=== PATIENT | male | born 1965 | race Caucasian/White ===

== ENCOUNTER 2020-09-12 11:47 | Emergency (ER) | payer OTHER, SELFPAY ==
--- NOTE | ~2020-09-12 | CT_ITS ---
EXAMINATION: CT ABDOMEN AND PELVIS WITHOUT CONTRAST CLINICAL INFORMATION: Left-sided flank pain. History renal calculi. COMPARISON: CT abdomen and pelvis noncontrast 10/24/2019 TECHNIQUE: Multidetector volumetric imaging was performed from the superior aspect of the liver through the pubic symphysis. Sagittal and coronal reformatted images were obtained on the technologist's workstation. This CT examination was performed using dose optimization techniques as appropriate, variously including the following: *Automated exposure control *Adjustment of mA and/or kV according to patient size (this includes techniques or standardized protocols for targeted exams where dose is matched to indication/reason for exam; i.e. extremities or head) *Use of iterative reconstruction technique DLP: 833 mGy-cm FINDINGS: LUNG BASES: The visualized lung bases are unremarkable. LIVER, GALLBLADDER, AND BILIARY TREE: The liver is normal in size, shape, and attenuation. No focal hepatic lesion or biliary ductal dilatation is present. The gallbladder is unremarkable with no evidence of radiopaque gallstones, gallbladder wall thickening, or obvious pericholecystic inflammatory changes. PANCREAS: Unremarkable. SPLEEN: Unremarkable. ADRENAL GLANDS: Unremarkable. KIDNEYS AND URETERS: There is mild to moderate left hydronephrosis secondary to a ureteropelvic junction calculus 0.6 x 0.4 cm, 617 HU attenuation, and 13 cm from the left flank. There is a nonobstructing calculus interpolar left kidney measuring 0.7 x 0.5 cm, 738 HU attenuation. There is no perinephric stranding. No other left urinary tract calculi. No right hydronephrosis or perinephric stranding. There is a punctate nonobstructing calculus lower pole right kidney under 3 mm, series 4 image 414. BLADDER: Unremarkable. GASTROINTESTINAL TRACT: No bowel obstruction or inflammatory changes in the bowel or mesentery. Normal appendix. No ascites or fluid collection. There is mild lipodystrophy central mesentery with mild circumscribed increased attenuation similar to prior CT 10/14/2019. ABDOMINAL WALL: Stable small fat-containing umbilical hernia under 3 cm. Stable borderline fat-containing inguinal hernias. LYMPH NODES: No lymphadenopathy. VASCULAR: Unremarkable. PELVIC VISCERA: Unremarkable. OSSEOUS STRUCTURES: No acute bony abnormality. Degenerative disc changes again noted lumbosacral junction. CT/CT abdomen pelvis wo con IMPRESSION: 1. Mild to moderate left hydronephrosis secondary to a UPJ calculus 6 x 4 mm. No perinephric stranding. 2. Nonobstructing left renal calculus 7 x 5 mm. Punctate nonobstructing right lower pole calculus.
[2020-09-12 11:54] VITALS: BP 135/80; PULSE 83; RESP 16; TEMP 36.6; O2SAT 97; BMI 25.7
[2020-09-12 12:00] VITALS: BP 136/81; PULSE 69; RESP 20; TEMP 36.8; O2SAT 95
--- NOTE | 2020-09-12 12:49 | ED.ABDPAIN ---
HPI - Abdominal Pain General Chief Complaint: Abdominal Pain Stated Complaint: kidney stone Time Seen by Provider: 09/12/20 12:34 Source: patient Mode of arrival: ambulatory Limitations: no limitations History of Present Illness HPI narrative: 54-year-old male with a history of renal colic here with complaints of left-sided abdominal pain intermittent for 2 months worsened over the last 2 weeks with associated vomiting. No urinary symptoms, testicular pain, back pain, fevers, chills, diarrhea or constipation. Related Data Previous Rx's Medication Instructions Recorded ketorolac 10 mg PO Q8H PRN #20 tab 09/12/20 ondansetron 4 mg PO Q6H PRN #10 tab 09/12/20 oxycodone 5 mg PO Q8H PRN #10 tab 09/12/20 prednisone 20 mg PO DAILY #5 tab 09/12/20 tamsulosin [Flomax] 0.4 mg PO DAILY #10 cap 09/12/20 Allergies Allergy/AdvReac Type Severity Reaction Status Date / Time No Known Allergies Allergy Verified 09/12/20 11:59 Review of Systems Review of Systems Yes all other systems are reviewed and are negative Constitutional: Reports no additional constitutional complaints, Denies body ache(s), Denies chills, Denies fever(s), Denies headache(s) and Denies weakness Eyes: Reports no additional eye complaints and Denies change in vision Reports system reviewed and no additional complaints, except as documented, Denies dizziness, Denies headache(s), Denies nasal congestion, Denies nasal discharge and Denies neck pain Cardiovascular: Reports no additional cardiovascular complaints, Denies chest pain, Denies leg edema and Denies dyspnea Respiratory: Reports no additional respiratory complaints, Denies cough and Denies dyspnea Gastrointestinal: Reports no additional gastrointestinal complaints, Reports abdominal pain, Denies diarrhea, Reports nausea and Reports vomiting Genitourinary: Denies hematuria, Denies flank pain, Denies penile discharge, Denies testicular pain, Denies urinary frequency, Denies urinary incontinence and Denies urinary urgency Musculoskeletal: Reports no additional musculoskeletal complaints, Denies back pain, Denies arthralgias, Denies joint swelling, Denies neck pain, Denies numbness and Denies tingling Skin/Breast: Reports system reviewed and no additional complaints, except as docu and Denies rash Reports system reviewed and no additional complaints, except as documented, Denies Abnormal speech present, Denies dizziness, Denies headache(s), Denies numbness, Denies tingling and Denies weakness Physical Exam Vital Signs: Vital Signs: Last Vital Signs Temp 97.8 F 09/12/20 15:03 Pulse 76 09/12/20 15:03 Resp 15 09/12/20 15:03 BP 136/74 09/12/20 15:03 Pulse Ox 97 09/12/20 15:03 Body Mass Index 25.7 Const: General: cooperative, healthy appearing, comfortable and no acute distress Orientation/consciousness: patient oriented x3 Limitations: no limitations HENMT: Head: Yes normal to inspection Ears: hearing grossly normal bilaterally General nose exam: Normal external nose present Face and sinus: Yes normal facial exam Mouth: Normal oral and palatal mucosa present Throat: Yes posterior oropharynx normal Eyes: General: appearance normal, both eyes and all related structures Pupils: Equal, round and reactive pupils present Neck: Neck: Yes normal visual inspection Chest: Chest palpation & inspection: normal inspection of the chest Resp: Effort & Inspection: normal respiratory effort Auscultation: clear to auscultation bilaterally Cardio: Rate: regular rate Rhythm: regular rhythm Peripheral pulses: Peripheral pulses 2+ throughout GI: Inspection: Yes normal to inspection Palpation (GI): Soft to palpation, Tenderness to palpation present (GI) (mod LLQ abdominal pain with no rebound ) and no guarding Auscultation: normal bowel sounds : General: Yes no CVA tenderness Back/Spine/Pelvis: Back: no CVA tenderness Thoracic/Lumbar Spine: thoracic and lumbar spine normal to inspection Skin: General skin exam: no rashes or lesions noted Neuro: General: patient oriented x3, no focal motor deficits and normal sensation to monofilament Cranial nerves: Yes Equal, round and reactive pupils present Cognition (Neuro): normal cognition Speech: No Abnormal speech present Gait exam (Neuro): Normal gait present Motor exam (neuro): 5/5 motor strength present throughout Extrem: General: Yes normal to inspection Course Course Course Narrative: 54-year-old male here with left-sided abdominal pain intermittent for 2 months worsened over the last 2 weeks with associated vomiting. Will need labs, UA, CT A/P. 1405- 1. Mild to moderate left hydronephrosis secondary to a UPJ calculus 6 x 4 mm. No perinephric stranding. 2. Nonobstructing left renal calculus 7 x 5 mm. Punctate nonobstructing right lower pole calculus. Labs and urine are pending. 1515-Spoke to Dr Morales. Pain is well controlled. Patient would like to go home and follow-up outpatient this week with Dr Morales. UA negative. Labs show mildly elevated renal function. Fluids infusing. Plan to recheck. 1700-renal function mildly improved. Likely component of some chronic kidney disease. Patient aware of results and will follow up primary care doctor. Reviewed worrisome signs and symptoms and when to return to the emergency department. Comfortable discharge home. MDM - Abdominal Pain MDM Narrative Medical decision making narrative: Diverticulitis, renal colic, pancreatitis, IBS Medical Records Attestation: I reviewed the patient's medical records. Lab Data Attestation: I reviewed the patient's lab results. Result diagrams: 09/12/20 13:45 09/12/20 16:13 Labs: Lab Results 09/12/20 09/12/20 09/12/20 Range/Units 13:45 13:45 13:45 WBC 14.3 H (4.8-10.8) X10*3/uL RBC 4.51 L (4.60-5.80) X10*6/uL Hgb 14.0 (14.0-18.0) g/dl Hct 40.2 L (42-52) % MCV 89.1 (80-98) fL MCH 31.0 (27.0-33.0) pg MCHC 34.8 (31.0-36.0) g/dl RDW 12.0 (11.0-16.0) % Plt Count 227 (160-400) X10*3/uL MPV 10.5 (9.4-12.4) fL Immature Gran % (Auto) 0.3 (0.0-0.4) % Neut % (Auto) 84.8 H (45-73) % Lymph % (Auto) 9.8 L (20-40) % Letcher % (Auto) 4.5 (2-11) % Eos % (Auto) 0.5 (0-4) % Baso % (Auto) 0.1 (0-2) % Lymph # (Auto) 1.4 (1.2-4.9) X10*3/uL Letcher # (Auto) 0.6 (0.1-1.2) X10*3/uL Eos # (Auto) 0.1 (0.0-0.4) X10*3/uL Baso # (Auto) 0.0 (0.0-0.2) X10*3/uL Abs Immat Gran (auto) 0.04 H (0.00-0.03) X10*3/uL Absolute Neuts (auto) 12.2 H (2.0-8.3) X10*3/uL Absolute Nucleated RBC 0.000 (0.0-0.012) X10*3/uL Nucleated RBC % (auto) 0.0 (0.0-0.2) /100WBC Hold Blue Top Sodium 138 (135-145) mmol/L Potassium 3.8 (3.3-5.1) mmol/L Chloride 105 (96-108) mmol/L Carbon Dioxide 22 (22-29) mmol/L Anion Gap 15 (12-20) BUN 26 H (9-16) mg/dL Creatinine 1.50 H (0.5-1.4) mg/dL Estim Creat Clear Calc 78.2 Estimated GFR 49 Random Glucose 104 (60-115) mg/dL Calcium 8.4 (8.4-10.2) mg/dL Total Bilirubin 0.5 (0.0-1.0) mg/dL Direct Bilirubin 0.2 (0.0-0.5) mg/dL AST 13 (5-37) U/L ALT 13 (0-40) U/L Alkaline Phosphatase 59 (39-117) U/L Total Protein 6.2 L (6.5-8.0) g/dL Albumin 3.8 (3.5-5.0) g/dL Lipase 24 (8-78) U/L Urine Color YELLOW Urine Appearance CLEAR Urine pH 6.0 (5.0-8.0) Ur Specific Sanford 1.020 (1.005-1.025) Urine Protein NEG (NEG-TRACE) MG/DL Urine Glucose (UA) NEG (NEG) MG/DL Urine Ketones NEG (NEG) MG/DL Urine Blood TRACE (NEG) Urine Nitrite NEG (NEG) Ur Leukocyte Esterase NEG (NEG) Urine RBC 0 (0) /HPF Urine WBC 0-2 (0-4) /HPF Ur Squamous Epith Cells NONE /LPF Urine Bacteria NONE /LPF 09/12/20 09/12/20 Range/Units 13:45 16:13 WBC (4.8-10.8) X10*3/uL RBC (4.60-5.80) X10*6/uL Hgb (14.0-18.0) g/dl Hct (42-52) % MCV (80-98) fL MCH (27.0-33.0) pg MCHC (31.0-36.0) g/dl RDW (11.0-16.0) % Plt Count (160-400) X10*3/uL MPV (9.4-12.4) fL Immature Gran % (Auto) (0.0-0.4) % Neut % (Auto) (45-73) % Lymph % (Auto) (20-40) % Letcher % (Auto) (2-11) % Eos % (Auto) (0-4) % Baso % (Auto) (0-2) % Lymph # (Auto) (1.2-4.9) X10*3/uL Letcher # (Auto) (0.1-1.2) X10*3/uL Eos # (Auto) (0.0-0.4) X10*3/uL Baso # (Auto) (0.0-0.2) X10*3/uL Abs Immat Gran (auto) (0.00-0.03) X10*3/uL Absolute Neuts (auto) (2.0-8.3) X10*3/uL Absolute Nucleated RBC (0.0-0.012) X10*3/uL Nucleated RBC % (auto) (0.0-0.2) /100WBC Hold Blue Top SEE NOTE Sodium 143 (135-145) mmol/L Potassium 4.8 D (3.3-5.1) mmol/L Chloride 110 H (96-108) mmol/L Carbon Dioxide 25 (22-29) mmol/L Anion Gap 13 (12-20) BUN 24 H (9-16) mg/dL Creatinine 1.45 H (0.5-1.4) mg/dL Estim Creat Clear Calc 80.9 Estimated GFR 51 Random Glucose 101 (60-115) mg/dL Calcium 8.3 L (8.4-10.2) mg/dL Total Bilirubin (0.0-1.0) mg/dL Direct Bilirubin (0.0-0.5) mg/dL AST (5-37) U/L ALT (0-40) U/L Alkaline Phosphatase (39-117) U/L Total Protein (6.5-8.0) g/dL Albumin (3.5-5.0) g/dL Lipase (8-78) U/L Urine Color Urine Appearance Urine pH (5.0-8.0) Ur Specific Sanford (1.005-1.025) Urine Protein (NEG-TRACE) MG/DL Urine Glucose (UA) (NEG) MG/DL Urine Ketones (NEG) MG/DL Urine Blood (NEG) Urine Nitrite (NEG) Ur Leukocyte Esterase (NEG) Urine RBC (0) /HPF Urine WBC (0-4) /HPF Ur Squamous Epith Cells /LPF Urine Bacteria /LPF Imaging Data CT scan - abdomen: Attestation: I personally reviewed and interpreted this imaging study as follows: Radiologist's impression: 1. Mild to moderate left hydronephrosis secondary to a UPJ calculus 6 x 4 mm. No perinephric stranding. 2. Nonobstructing left renal calculus 7 x 5 mm. Punctate nonobstructing right lower pole calculus. Discharge Plan Discharge Clinical Impression: Calculus of kidney Patient Disposition: Home, Self-Care Instructions: Renal Colic (ED) Additional Instructions: Increase fluids, rest Call Urology tomorrow morning for an appointment Return here for severe abdominal pain, vomiting, fever Prescriptions: New ketorolac 10 mg tablet 10 mg PO Q8H PRN (Reason: pain) Qty: 20 RF: 0 oxycodone 5 mg tablet 5 mg PO Q8H PRN (Reason: pain) Qty: 10 RF: 0 tamsulosin [Flomax] 0.4 mg capsule 0.4 mg PO DAILY Qty: 10 RF: 0 ondansetron 4 mg tablet,disintegrating 4 mg PO Q6H PRN (Reason: nausea and vomiting) Qty: 10 RF: 0 prednisone 20 mg tablet 20 mg PO DAILY Qty: 5 RF: 0 Referrals: Les Morales MD [Physician] - 2 days Interventions: ED Discharge Assessment Last Done: 09/12/20 17:10 Discharge Date/Time: 09/12/20 17:11 [facility] Past Medical History Attestation statement: The following information was validated with the patient. Source: old records reviewed and nursing notes reviewed Medical History H/O renal calculi PFO (patent foramen ovale) Social History Social History Alcohol intake: never Smoking Status: Never smoker Use of substances other than those prescribed or required for medical reasons: No Advance Directives: No Advance Directives Information Provided: Yes
[2020-09-12 14:13] LABS: Basophils Percent Auto 0.1 % (0-2); Eosinophils Absolute Auto 0.1 X10*3/uL (0.0-0.4); Eosinophils Percent Auto 0.5 % (0-4); Hematocrit 40.2 % (42-52); Imm Gran Abs Auto 0.04 X10*3/uL (0.00-0.03); Imm Gran Pct Auto 0.3 % (0.0-0.4); Lymphocytes Absolute Auto 1.4 X10*3/uL (1.2-4.9); Lymphocytes Percent Auto 9.8 % (20-40); MANUAL DIFF FLAG NO; Mean Corpuscular HGB Conc 34.8 g/dl (31.0-36.0); Mean Corpuscular Volume 89.1 fL (80-98); Mean Platelet Volume 10.5 fL (9.4-12.4); Monocytes Absolute Auto 0.6 X10*3/uL (0.1-1.2); Monocytes Percent Auto 4.5 % (2-11); Neutrophils Absolute Auto 12.2 X10*3/uL (2.0-8.3); Neutrophils Percent Auto 84.8 % (45-73); Platelet Count 227 X10*3/uL (160-400); Red Blood Count 4.51 X10*6/uL (4.60-5.80); White Blood Count 14.3 X10*3/uL (4.8-10.8)
[2020-09-12 14:19] LABS: Glucose Urine UA NEG (NEG); Leukocyte Esterase Urine NEG (NEG); Nitrite Urine NEG (NEG); Urine Blood TRACE (NEG); Urine Ketones NEG (NEG); Urine Protein NEG (NEG-TRACE)
[2020-09-12 14:23] LABS: Color Urine YELLOW
[2020-09-12 14:24] LABS: Appearance Urine CLEAR
[2020-09-12 14:43] LABS: Alanine Aminotransferase 13 U/L (0-40); Albumin Level 3.8 g/dL (3.5-5.0); Alkaline Phosphatase 59 U/L (39-117); Anion Gap 15 (12-20); Aspartate Amino Transferase 13 U/L (5-37); Bilirubin Direct 0.2 mg/dL (0.0-0.5); Bilirubin Total 0.5 mg/dL (0.0-1.0); Blood Urea Nitrogen 26 mg/dL (9-16); Calcium 8.4 mg/dL (8.4-10.2); Carbon Dioxide 22 mmol/L (22-29); Chloride 105 mmol/L (96-108); Creatinine Clr Calc Pharmacy 78.2; Estimated Glomerular Filt Rate 49; Glucose Random 104 mg/dL (60-115); Lipase 24 U/L (8-78); Potassium 3.8 mmol/L (3.3-5.1); Sodium 138 mmol/L (135-145); Total Protein 6.2 g/dL (6.5-8.0)
[2020-09-12] MEDS: 0.9 % Sodium Chloride 1,000 ML 999 ML IVCONT ×2 (14:51→15:05)
[2020-09-12 14:54] LABS: RBC Urine 0 /HPF (0); WBC Urine 0-2 /HPF (0-4)
[2020-09-12 15:03] VITALS: BP 136/74; PULSE 76; RESP 15; TEMP 36.6; O2SAT 97
--- NOTE | 2020-09-12 15:14 | PC.NURSE ---
Pt denies all complaints or needs at this time. IV fluids infusing, no apparent distress.
[2020-09-12 16:59] LABS: Anion Gap 13 (12-20); Blood Urea Nitrogen 24 mg/dL (9-16); Calcium 8.3 mg/dL (8.4-10.2); Carbon Dioxide 25 mmol/L (22-29); Chloride 110 mmol/L (96-108); Creatinine Clr Calc Pharmacy 80.9; Estimated Glomerular Filt Rate 51; Glucose Random 101 mg/dL (60-115); Potassium 4.8 mmol/L (3.3-5.1); Sodium 143 mmol/L (135-145)
== END 2020-09-12 17:11 | disposition home or self-care (01) ==
PROVIDERS: Nurse Practitioner Family; Emergency Provider Emergency Medicine
DX: N20.0 Calculus of kidney (principal); Z87.442 Personal history of urinary calculi
CPT/HCPCS: 36415; 74176; 80048; 80076; 81001; 83690; 85025; 96361; 96374; 99284

== ENCOUNTER → 2020-09-15 12:05 | Outpatient (BNVA) | payer OTHER, SELFPAY | PROVIDERS: Visit Provider Urology ==

== ENCOUNTER 2020-10-12 06:22 | Day surgery (SDC) | payer OTHER, SELFPAY ==
--- NOTE | 2020-10-11 09:35 | HO.ANESPROP2 ---
Documented by User: Aruna Ayde 10/11/20 09:37 HPI - Anesthesia Eval Consult details Narrative: 54yo M for Left ESWL No prev ESWL on record PMFSH Active Problems Active Problems: All Active Problems (Updated 09/15/20 @ 22:11 by Les Morales MD) Nephrolithiasis (Acute) Past Medical History Medical History H/O renal calculi PFO (patent foramen ovale) Social History Social History Alcohol intake: never Smoking Status: Never smoker Use of substances other than those prescribed or required for medical reasons: No Have you been hit, kicked, punched, or otherwise hurt by someone within the past year? If so, by whom?: No Are you DNR?: No Advance Directives: No Advance Directives Information Provided: Yes Meds Allergies Allergy/AdvReac Type Severity Reaction Status Date / Time No Known Allergies Allergy Verified 10/12/20 07:02 Exam Exam Date and Time: October 11, 2020 0935 Pertinent Lab Results Pertinent Lab Results: Laboratory Tests 09/12/20 09/12/20 13:45 16:13 WBC 14.3 H Hgb 14.0 Hct 40.2 L Plt Count 227 Sodium 143 Potassium 4.8 D Chloride 110 H Carbon Dioxide 25 BUN 24 H Creatinine 1.45 H Assessment and Plan Assessment Anesthesia Assessment: Chart Reviewed Documented by User: Colin Cee MD 10/12/20 07:48 PMFSH Past Medical History Medical History H/O renal calculi PFO (patent foramen ovale) Social History Social History Alcohol intake: never Smoking Status: Never smoker Use of substances other than those prescribed or required for medical reasons: No Have you been hit, kicked, punched, or otherwise hurt by someone within the past year? If so, by whom?: No Are you DNR?: No Advance Directives: No Advance Directives Information Provided: Yes Meds Allergies Allergy/AdvReac Type Severity Reaction Status Date / Time No Known Allergies Allergy Verified 10/12/20 07:02 Exam Airway Mallampati Class: III TM Dist: >3cm Loose/Missing/Broken Teeth: No Heart: RRR Lungs: NL Assessment and Plan Assessment Anesthesia Assessment: Anesthesia Plan Discussed and Chart Reviewed Final Anesthetic Review NPO: Yes ASA Class: III Final Preanesthetic Review: No Changes in Pt Med Stat, Meds/Allgs Chart Reviewed, Consent Obtained/Reviewed and Anes Risks/Benef Reviewed Patient Risk: Low Procedure Risk: Low Anesthetic Plan Anesthetic Plan: MAC: Disposition: Standard PACU
[2020-10-12] VITALS (9 sets, daily range): BP systolic 110–144; BP diastolic 55–101; PULSE 56–69; RESP 16–18; TEMP 35.4–36.7; O2SAT 95–100; BMI 26.2
--- NOTE | ~2020-10-12 | XR_ITS ---
EXAMINATION: XR ABDOMEN KUB CLINICAL INDICATION: Kidney stones COMPARISON: Previous CT of the abdomen and pelvis August 2020 TECHNIQUE: AP view of the abdomen. FINDINGS: There are calcifications projecting over the left kidney suggestive of stones. Largest stones measure 4 mm projecting over the upper pole of the left kidney and 3 x 6 mm projecting just medial to the lower pole the left kidney. Compare with previous CT scan this may represent a left UPJ stone similar to CT scan. No right renal stone is appreciated by KUB. There are bilateral pelvic calcifications probably representing calcified phleboliths. Bowel gas pattern is normal. There are degenerative changes of the lower lumbar spine. XR/XR KUB IMPRESSION: Left renal stones. When compared with previous CT scan, the more inferior left stone may represent a left UPJ stone.
[2020-10-12] MEDS: Lactated Ringers 1,000 ML 100 ML IVCONT (06:55)
--- NOTE | 2020-10-12 07:48 | MHC.SHP ---
Pre-Procedural Eval Section A The patient is an INPATIENT: No Changes since office visit: No Cold of Flu in the past 2 weeks, No New Medical Problems, No Changes in Medication and No Patient answered all questions The History & Physical has been completed within 30 days and I have reviewed it.: Yes Section B Chief Complaint: tracie of kidney Allergies: Allergies Allergy/AdvReac Type Severity Reaction Status Date / Time No Known Allergies Allergy Verified 10/12/20 07:02 Plan Diagnosis/Plan: Unchanged (left ESWL) I have reviewed the history and physical and performed a pertinent physical examination on my patient. No changes have occurred unless specified.
--- NOTE | 2020-10-12 07:49 | P.OP_ITS ---
Operative Note Operative Note Date of Service: 10/12/20 Narrative: PreOperative Diagnosis: left Renal stones Post Operative Diagnosis: left Renal stones , left UPJ stones Procedure: ESWL Surgeon: Dr Les Morales Anesthesia: mac/sedation Indications for procedure: They understand ESWL may be a staged procedure and subsequent intervention may be required based on imaging after ESWL. They also understand there is a risk of bleeding, infection, damage to adjacent organs. Procedure: After informed consent was verified the patient was brought to the operating room and placed in a supine position. Anesthesia was performed per protocol. Safety pause time-out was performed. Imaging was in the room and laterality con firmed. ESWL was performed. The 1st 500 shocks were performed at 60 hertz. These were performed with increasing power. Once maximum power was reached the rate was increased to 180 hertz. A total of 2500 shocks were given. Fluoroscopy showed stone disintegration. They tolerated procedure well and was transferred to the recovery area upon completion.
[2020-10-12] MEDS: traMADoL HCL 50 MG TABLET PO (09:01)
[2020-10-12] MEDS: HYDROmorphone HCl 0.5 MG/0.5 ML SYRINGE 0.25 MG IVPUSH (09:26)
[2020-10-12] MEDS: ondansetron HCL 4 MG/2 ML VIAL IVPUSH (09:29)
== END 2020-10-12 10:46 | disposition home or self-care (01) ==
PROVIDERS: Visit Provider Urology
PROC: (CPT 50590; principal; 2020-10-12 07:30)
DX: N20.0 Calculus of kidney (principal); Z87.442 Personal history of urinary calculi; Q21.1 Atrial septal defect
CPT/HCPCS: 50590; 74018; J1170; J2250; J2405; J3010